=== PATIENT | female | born 2000 | race Caucasian/White ===

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

== ENCOUNTER → 2019-01-14 | Outpatient (CLI) | payer OTHER | LOC: LAB 14:59 | PROVIDERS: ATTEND Nurse Practitioner Primary Care | DX: Z09 Encounter for follow-up examination after completed treatment for conditions other than malignant neoplasm (principal); Z87.59 Personal history of other complications of pregnancy, childbirth and the puerperium | CPT/HCPCS: 36415; 84702 ==

== ENCOUNTER → 2019-03-07 | Outpatient (CLI) | payer OTHER | LOC: OD 09:17 | PROVIDERS: ATTEND Nurse Practitioner Primary Care | DX: Z32.01 Encounter for pregnancy test, result positive (principal) | CPT/HCPCS: 36415; 84702 ==

== ENCOUNTER → 2019-03-11 | Outpatient (CLI) | payer OTHER | LOC: OD 07:38 | PROVIDERS: ATTEND Nurse Practitioner Primary Care | DX: Z32.01 Encounter for pregnancy test, result positive (principal) | CPT/HCPCS: 36415; 84702 ==

== ENCOUNTER → 2019-03-19 | Outpatient (CLI) | payer OTHER | LOC: OD 08:02 | PROVIDERS: ATTEND Nurse Practitioner Primary Care | DX: Z34.90 Encounter for supervision of normal pregnancy, unspecified, unspecified trimester (principal); Z87.59 Personal history of other complications of pregnancy, childbirth and the puerperium | CPT/HCPCS: 36415; 84144; 84702 ==